=== PATIENT | male | born 1960 | race Two or more races ===

== ENCOUNTER 2016-08-17 13:18 | Inpatient (IN) | payer MEDICAID ==
[~2016-08-17] VITALS: Ht 152.4 cm; Wt 81.2 kg
[2016-08-17 14:39] LABS: Basophils # (auto) 0 uL; Basophils % (auto) 0.3 % (0.0-2.0); Eosinophils # (auto) 0.1 uL; Hematocrit 43.2 % (41.0-53.0); Hemoglobin 14.7 g/dL (13.5-17.5); Lymphocytes # (auto) 1.9 uL; Lymphocytes % (auto) 24.4 % (10.0-50.0); Mean Corpuscular Hemoglobin 30.8 pg (28.0-32.0); Mean Corpuscular Hgb Conc. 33.9 g/dL (32.0-36.0); Mean Corpuscular Volume 90.7 fL (80.0-100.0); Mean Platelet Volume 9.3 fL (7.4-10.4); Monocytes # (auto) 0.6 uL; Monocytes % (auto) 7.6 % (0.0-12.0); Neutrophils # (auto) 5.3 uL; Neutrophils % (auto) 66.7 % (37.0-80.0); Platelet Count (auto) 316 10^3/uL (140-450); Red Cell Distribution Width 15.1 % (11.6-16.0)
[2016-08-17 15:06] LABS: Albumin 3.1 g/dL (3.4-5.0); Alkaline Phosphatase 91 U/L (45-117); Amylase 72 U/L (25-115); Anion Gap 7 (5-15); Aspartate Aminotransferase 18 U/L (15-37); BUN/Creatinine Ratio 32.5; Bilirubin, Total 0.3 mg/dL (0.2-1.0); Blood Urea Nitrogen 25 mg/dL (7-18); Calcium 9.1 mg/dL (8.5-10.1); Carbon Dioxide 29 mmol/L (21-32); Chloride 101 mmol/L (98-107); GFR African American 134 mL/min; GFR Non-African American 111 mL/min; Glucose 91 mg/dL (74-106); Magnesium 2.4 mg/dL (1.6-2.6); Sodium 137 mmol/L (136-145); Total Protein 9.4 g/dL (6.4-8.2)
[2016-08-17 18:36] LABS: Urine Bilirubin Negative (Negative); Urine Color Yellow (Yellow); Urine Glucose Normal (Normal); Urine Ketone Negative (Negative); Urine Mucus FEW (None Seen); Urine Nitrite Negative (Negative); Urine RBC <1 /hpf (0 - 3); Urine Urobilinogen Normal (Negative); Urine pH 5.5 (5.0-8.0)
[2016-08-17 18:37] LABS: Urine Blood 1+ /uL (Negative)
[2016-08-17] MEDS ORDERED: ONDANSETRON HCL 4 MG/2 ML VIAL IV PRN (21:30)
[2016-08-17] MEDS ORDERED: MORPHINE SULF INJ 2 MG/ML SYRINGE 1ML IV PRN (21:30)
[2016-08-17] MEDS ORDERED: amLODIPine BESYLATE 5 MG TAB PO ONE (21:30)
[2016-08-17] MEDS ORDERED: ACETAMINOPHEN 325 MG TAB PO PRN (21:30)
[2016-08-17] MEDS ORDERED: TEMAZEPAM 15 MG CAP PO PRN (21:30)
[2016-08-17] MEDS: HYDROcodone-ACET 7.5/325MG TAB PO PRN (21:40)
[2016-08-17] MEDS: FAMOTIDINE 20 MG TAB PO SCH (21:44)
[2016-08-17 22:10] VITALS: BP 134/80
[2016-08-17 22:32] VITALS: BP 134/80
[2016-08-18] VITALS (7 sets, daily range): BP systolic 118–152; BP diastolic 70–98
[2016-08-18 06:07] LABS: Basophils # (auto) 0 uL; Basophils % (auto) 0.4 % (0.0-2.0); Eosinophils # (auto) 0.1 uL; Eosinophils % (auto) 1.5 % (0.0-7.0); Hematocrit 38.6 % (41.0-53.0); Hemoglobin 13.2 g/dL (13.5-17.5); Lymphocytes # (auto) 1.8 uL; Lymphocytes % (auto) 26.5 % (10.0-50.0); Mean Corpuscular Hemoglobin 30.8 pg (28.0-32.0); Mean Corpuscular Hgb Conc. 34.1 g/dL (32.0-36.0); Mean Corpuscular Volume 90.4 fL (80.0-100.0); Mean Platelet Volume 9.1 fL (7.4-10.4); Monocytes # (auto) 0.6 uL; Monocytes % (auto) 9.2 % (0.0-12.0); Neutrophils # (auto) 4.2 uL; Neutrophils % (auto) 62.4 % (37.0-80.0); Platelet Count (auto) 313 10^3/uL (140-450); Red Cell Distribution Width 15.1 % (11.6-16.0); White Blood Cell 6.8 10^3/uL (4.4-10.8)
[2016-08-18 06:23] LABS: Albumin 2.6 g/dL (3.4-5.0); BUN/Creatinine Ratio 30.6; Calcium 8.5 mg/dL (8.5-10.1); Potassium 3.9 mmol/L (3.5-5.1)
[2016-08-18 06:30] LABS: Bilirubin, Total 0.4 mg/dL (0.2-1.0); Total Protein 8.5 g/dL (6.4-8.2)
[2016-08-18] MEDS ORDERED: amLODIPine BESYLATE 5 MG TAB PO SCH (10:00)
[2016-08-18] MEDS: FAMOTIDINE 20 MG TAB PO SCH ×2 (10:09→21:05)
[2016-08-18] MEDS: ENOXAPARIN SOD 40 MG/0.4 ML SYRINGE SC SCH (10:09)
[2016-08-18 12:45] LABS: INR 1.09 (0.9-1.15); Partial Thromboplastin Time 37.2 sec (22.64-33.71); Prothrombin Time 11.9 sec (9.37-12.3)
[2016-08-19] VITALS (7 sets, daily range): BP systolic 130–144; BP diastolic 71–101
[2016-08-19] MEDS ORDERED: FLUMAZENIL 0.1 MG/ML INJ 10ML MDV IV ONE (09:09)
[2016-08-19] MEDS ORDERED: fentaNYL Drip 2500mCg/250mlNS 250 ML IV ONE (09:10)
[2016-08-19] MEDS ORDERED: MIDAZOLAM HCL 1MG/1ML-2 ML VIAL ONE (09:10)
[2016-08-19] MEDS ORDERED: NALOXONE HCL 1MG/ML 2ML SYRINGE ONE (09:10)
[2016-08-19] MEDS ORDERED: fentaNYL CITRATE 100 MCG/2 ML VL ONE (09:11)
[2016-08-19] MEDS ORDERED: LIDOCAINE 2%HCL (LOCAL ANESTH.) INJ 20ML MDV ONE (09:23)
[2016-08-19] MEDS: FAMOTIDINE 20 MG TAB PO SCH ×2 (11:01→21:30)
[2016-08-19] MEDS: ENOXAPARIN SOD 40 MG/0.4 ML SYRINGE SC SCH (11:01)
[2016-08-19] MEDS: HYDROcodone-ACET 7.5/325MG TAB PO PRN (19:54)
[2016-08-19 22:09] LABS: Lambda Lite Chains Free Serum 380.8 mg/L (5.7-26.3)
[2016-08-20 05:00] VITALS: BP 118/84
[2016-08-20 09:00] VITALS: BP 133/87
[2016-08-20] MEDS ORDERED: amLODIPine BESYLATE 5 MG TAB PO SCH (10:00)
[2016-08-20] MEDS: ENOXAPARIN SOD 40 MG/0.4 ML SYRINGE SC SCH (10:00)
[2016-08-20] MEDS: HYDROcodone-ACET 7.5/325MG TAB PO PRN (10:08)
[2016-08-20] MEDS: FAMOTIDINE 20 MG TAB PO SCH (10:12)
[2016-08-20 12:45] VITALS: BP 144/98
[2016-08-20 13:29] VITALS: BP 144/98
== END 2016-08-20 14:00 | disposition home or self-care (01) | DRG 343 ==
LOC: ER 13:51 → OVERFLOW 13:52 → CENTRAL 22:10
PROVIDERS: ADMIT Internal Medicine; ATTEND Internal Medicine
PROC: 0PB43ZX Excision of Thoracic Vertebra, Percutaneous Approach, Diagnostic (ICD-10-PCS; principal; 2016-08-19)
DX: M84.48XA Pathological fracture, other site, initial encounter for fracture (principal); C90.00 Multiple myeloma not having achieved remission; I10 Essential (primary) hypertension; Q43.3 Congenital malformations of intestinal fixation; M89.50 Osteolysis, unspecified site; E66.9 Obesity, unspecified; Z68.34 Body mass index [BMI] 34.0-34.9, adult; Z82.49 Family history of ischemic heart disease and other diseases of the circulatory system
CPT/HCPCS: 10022; 36415; 71010; 72128; 74176; 77012; 77074; 78306; 80053; 81001; 82150; 82232; 82784; 83615; 83690; 83735; 83883; 84156; 84484; 85025; 85610; 85652; 85730; 86334; 86335; J2250; J3010

== ENCOUNTER 2018-06-06 19:09 | Inpatient (IN) | payer MEDICAID | END 2018-06-09 22:15 | disposition home or self-care (01) | LOC: OVERFLOW 06-07 02:39 → ER 19:09 → WEST WING 06-07 16:30 | DX: J18.1 Lobar pneumonia, unspecified organism (principal); C90.00 Multiple myeloma not having achieved remission; R65.10 Systemic inflammatory response syndrome (SIRS) of non-infectious origin without acute organ dysfunction ==

== ENCOUNTER 2021-04-08 20:32 | Emergency (ER) | payer MEDICAID ==
[~2021-04-08] VITALS: Ht 152.4 cm; Wt 82.6 kg
[~2021-04-08 20:32] MED LIST: ALB5IS NEB; LEVO500T31 PO
[2021-04-08 22:47] VITALS: BP 184/119
[2021-04-08] MEDS ORDERED: KETOROLAC TROMETH 30 MG/ML 1ML VIAL IM ONE (23:00)
[2021-04-08] MEDS ORDERED: IBUP800T27 PO (23:41)
== END 2021-04-09 00:32 | disposition home or self-care (01) ==
LOC: ER 20:33
DX: S46.911A Strain of unspecified muscle, fascia and tendon at shoulder and upper arm level, right arm, initial encounter (principal); I10 Essential (primary) hypertension; M79.18 Myalgia, other site; X58.XXXA Exposure to other specified factors, initial encounter; Y93.01 Activity, walking, marching and hiking; Y92.89 Other specified places as the place of occurrence of the external cause; Y99.8 Other external cause status
CPT/HCPCS: 93005; 96372; 99283; J1885

== ENCOUNTER 2021-06-29 21:19 | Emergency (ER) | payer MEDICAID ==
[~2021-06-29] VITALS: Ht 160 cm; Wt 80.3 kg
[2021-06-29 21:19] VITALS: BP 199/110
[~2021-06-29 21:19] MED LIST changes: +IBUP800T27 PO
[2021-06-29] MEDS ORDERED: traMADol HCL 50 MG TAB PO ONE (22:15)
[2021-06-29] MEDS ORDERED: TRAM-297 PO (22:17)
== END 2021-06-29 23:59 | disposition home or self-care (01) ==
LOC: ER 21:19
DX: M25.511 Pain in right shoulder (principal); I10 Essential (primary) hypertension; Z79.1 Long term (current) use of non-steroidal anti-inflammatories (NSAID); Z79.2 Long term (current) use of antibiotics; Z79.899 Other long term (current) drug therapy

== ENCOUNTER 2021-11-13 11:14 | Emergency (ER) | payer MEDICAID ==
[~2021-11-13] VITALS: Ht 160 cm; Wt 82.0 kg
[~2021-11-13 11:14] MED LIST changes: +TRAM-297 PO
[2021-11-13 17:23] VITALS: BP 148/85
== END 2021-11-13 17:25 | disposition home or self-care (01) ==
LOC: ER 11:14
DX: R13.10 Dysphagia, unspecified (principal); I10 Essential (primary) hypertension
CPT/HCPCS: 70490

== ENCOUNTER 2023-02-17 19:27 | Inpatient (IN) | payer MEDICAID ==
[~2023-02-17] VITALS: Ht 152.4 cm; Wt 77.7 kg
[~2023-02-17 19:27] MED LIST changes: +IBUP-1456 PO; -IBUP800T27 PO
[2023-02-17 21:25] LABS: Basophils # (auto) 0 10 ^3/uL (0-0.2); Basophils % (auto) 0.1 % (0.0-2.0); Eosinophils # (auto) 0 10 ^3/uL (0-0.8); Eosinophils % (auto) 0.4 % (0.0-7.0); Hemoglobin 16.4 g/dL (13.5-17.5); Lymphocytes % (auto) 9.5 % (10.0-50.0); Mean Corpuscular Hemoglobin 31.2 pg (28.0-32.0); Mean Corpuscular Hgb Conc. 32.9 g/dL (32.0-36.0); Monocytes # (auto) 1.1 10 ^3/uL (0-1.3); Monocytes % (auto) 10.1 % (0.0-12.0); Neutrophils # (auto) 8.3 10 ^3/uL (1.6-8.6); Neutrophils % (auto) 79.9 % (37.0-80.0); Nucleated Red Blood Cells % 0.1 %; Red Blood Cells 5.27 10^6/uL (4.5-5.90); Red Cell Distribution Width 16.7 % (11.8-14.3); White Blood Cell 10.4 10^3/uL (4.4-10.8)
[2023-02-17 21:34] LABS: Urine Bacteria MOD /hpf (None Seen); Urine Blood TRACE /uL (Negative); Urine Clarity HAZY (Clear); Urine Color Yellow (Yellow); Urine Hyaline Cast FEW /lpf (0 - 2); Urine Mucus FEW (None Seen); Urine Protein, UAD 1+ (Negative); Urine Specific Gravity 1.016 (1.001-1.035); Urine Sperm PRESENT /hpf (None Seen); Urine Urobilinogen Normal (Negative); Urine WBC 1 /hpf (0 - 3); Urine pH 5.5 (5.0-8.0)
[2023-02-17 21:40] LABS: Alanine Aminotransferase 45 U/L (7-40); Albumin 4.4 g/dL (3.2-4.8); Alkaline Phosphatase 80 U/L (46-116); Anion Gap 8 (5-15); Aspartate Aminotransferase 16 U/L (13-40); BUN/Creatinine Ratio 26.4 (10.0-20.0); Blood Urea Nitrogen 57 mg/dL (9-23); Calcium 8.5 mg/dL (8.7-10.4); Carbon Dioxide 21 mmol/L (20-30); Chloride 107 mmol/L (98-107); Glucose 149 mg/dL (74-106); Lipase 48 U/L (12-53); Potassium 4.8 mmol/L (3.5-5.1); Sodium 136 mmol/L (136-145)
[2023-02-17 21:41] LABS: Total Protein 6.7 g/dL (5.7-8.2)
[2023-02-17] MEDS ORDERED: HYDROmorphone HCL 2 MG/ML VL/or syr IV ONE (23:15)
[2023-02-17] MEDS ORDERED: SODIUM CHLORIDE 0.9% 1,000 ML IVB ONE (23:15)
[2023-02-17] MEDS ORDERED: ONDANSETRON HCL 4 MG/2 ML VIAL IV ONE (23:15)
[2023-02-18 00:53] LABS: INR 1.05 (0.9-1.15); Partial Thromboplastin Time 27.7 SEC (24.5-34.5)
[2023-02-18] MEDS ORDERED: ACETAMINOPHEN 325 MG TAB PO ONE (02:45)
[2023-02-18] MEDS ORDERED: metroNIDAZOLE 500MG/100ML 100 ML IV ONE (03:15)
[2023-02-18] MEDS ORDERED: LOPERAMIDE HCL 2 MG CAP/TAB PO ONE (03:15)
[2023-02-18] MEDS ORDERED: HYDROcodone-ACET 5/325MG TAB PO PRN (04:45)
[2023-02-18] MEDS ORDERED: ACETAMINOPHEN 325 MG TAB PO PRN (04:45)
[2023-02-18] MEDS ORDERED: SODIUM CHLORIDE 0.9% 1,000 ML IV SCH (04:45)
[2023-02-18] MEDS ORDERED: DOCUSATE SOD 100 MG CAP PO PRN (04:45)
[2023-02-18] MEDS ORDERED: MORPHINE SULFATE INJ 2 MG/ml SYRG IV PRN (04:45)
[2023-02-18] MEDS ORDERED: NITROGLYCERIN 0.4 MG SL TAB SL PRN (04:45)
[2023-02-18] MEDS ORDERED: ONDANSETRON HCL 4 MG/2 ML VIAL IV PRN (04:45)
[2023-02-18] MEDS: cefTRIAXone 1GM/50ML D5W 50 ML IV SCH (06:13)
[2023-02-18 06:34] LABS: Basophils # (auto) 0 10 ^3/uL (0-0.2); Basophils % (auto) 0.1 % (0.0-2.0); Eosinophils # (auto) 0 10 ^3/uL (0-0.8); Eosinophils % (auto) 0.1 % (0.0-7.0); Hematocrit 47.5 % (41.0-53.0); Hemoglobin 15.7 g/dL (13.5-17.5); Lymphocytes # (auto) 0.8 10 ^3/uL (0.4-5.4); Mean Corpuscular Hemoglobin 31.4 pg (28.0-32.0); Mean Corpuscular Volume 95.2 fL (80.0-100.0); Monocytes # (auto) 1.1 10 ^3/uL (0-1.3); Monocytes % (auto) 10.2 % (0.0-12.0); Neutrophils # (auto) 8.7 10 ^3/uL (1.6-8.6); Neutrophils % (auto) 81.6 % (37.0-80.0); Red Blood Cells 4.99 10^6/uL (4.5-5.90); Red Cell Distribution Width 16.4 % (11.8-14.3); White Blood Cell 10.6 10^3/uL (4.4-10.8)
[2023-02-18 06:47] LABS: Alanine Aminotransferase 44 U/L (7-40); Alkaline Phosphatase 74 U/L (46-116); Anion Gap 13 (5-15); Aspartate Aminotransferase 23 U/L (13-40); Bilirubin, Total 0.9 mg/dL (0.2-1.0); Calcium 8.2 mg/dL (8.5-10.1); Carbon Dioxide 18 mmol/L (20-30); Chloride 108 mmol/L (98-107); Glucose 121 mg/dL (74-106); Potassium 5.3 mmol/L (3.5-5.1); Sodium 139 mmol/L (136-145); Total Protein 5.8 g/dL (5.7-8.2)
[2023-02-18 06:53] LABS: Blood Urea Nitrogen 84 mg/dL (9-23)
[2023-02-18] MEDS: SODIUM CHLORIDE 0.9% 1,000 ML IV SCH ×2 (10:42→20:15)
[2023-02-18 11:05] LABS: Protein, Urine 77.4 mg/dL (0.0-11.9)
[2023-02-18 11:06] LABS: Creatinine, Urine 132.51 mg/dL (30.0-125.0); Urine Protein/Creatinine Ratio 0.58
[2023-02-18 11:11] LABS: Erythrocyte Sedimentation Rate 9 mm/hr (0-20)
[2023-02-18] MEDS ORDERED: HYDROCORTISONE SOD SUCC 100 MG/2ML INJ VIAL IV SCH (14:00)
[2023-02-18 17:55] VITALS: BP 109/82; PULSE 112; RESP 20; TEMP 98.7; O2SAT 95
[2023-02-18] MEDS ORDERED: TAMSULOSIN HYDROCHLORIDE 0.4 MG CAP PO SCH (18:00)
[2023-02-18 20:00] VITALS: PULSE 82; TEMP 37.1
[2023-02-18 22:00] VITALS: BP 109/70; PULSE 115; RESP 18; TEMP 97.9; O2SAT 93
[2023-02-19 05:00] VITALS: BP 103/71; PULSE 104; RESP 18; TEMP 98; O2SAT 93
[2023-02-19] MEDS: SODIUM CHLORIDE 0.9% 1,000 ML IV SCH ×2 (06:15→16:18)
[2023-02-19 06:17] LABS: Albumin 3.9 g/dL (3.2-4.8); Alkaline Phosphatase 68 U/L (46-116); Anion Gap 9 (5-15); Aspartate Aminotransferase 17 U/L (13-40); Bilirubin, Total 1.2 mg/dL (0.2-1.0); Calcium 7.9 mg/dL (8.7-10.4); Carbon Dioxide 22 mmol/L (20-30); Chloride 109 mmol/L (98-107); Glucose 116 mg/dL (74-106); Potassium 3.9 mmol/L (3.5-5.1); Sodium 140 mmol/L (136-145); Total Protein 5.8 g/dL (5.7-8.2)
[2023-02-19 06:19] LABS: Alanine Aminotransferase 37 U/L (7-40)
[2023-02-19 06:20] LABS: Basophils # (auto) 0 10 ^3/uL (0-0.2); Basophils % (auto) 0.3 % (0.0-2.0); Blood Urea Nitrogen 30 mg/dL (9-23); Eosinophils # (auto) 0.1 10 ^3/uL (0-0.8); Eosinophils % (auto) 1.2 % (0.0-7.0); Hematocrit 44.3 % (41.0-53.0); Hemoglobin 14.8 g/dL (13.5-17.5); Lymphocytes # (auto) 0.8 10 ^3/uL (0.4-5.4); Lymphocytes % (auto) 8.8 % (10.0-50.0); Mean Corpuscular Hemoglobin 31.4 pg (28.0-32.0); Mean Corpuscular Hgb Conc. 33.4 g/dL (32.0-36.0); Monocytes # (auto) 1.1 10 ^3/uL (0-1.3); Monocytes % (auto) 12.7 % (0.0-12.0); Neutrophils # (auto) 6.9 10 ^3/uL (1.6-8.6); Red Blood Cells 4.71 10^6/uL (4.5-5.90)
[2023-02-19 08:00] VITALS: PULSE 107; PULSE 120; RESP 14; O2SAT 94
[2023-02-19] MEDS: cefTRIAXone 1GM/50ML D5W 50 ML IV SCH (08:48)
[2023-02-19 09:00] VITALS: BP 112/78; PULSE 120; RESP 14; TEMP 98.8; O2SAT 94
[2023-02-19 13:00] VITALS: BP 108/73; PULSE 77; RESP 14; TEMP 97.4; O2SAT 94
[2023-02-19] MEDS ORDERED: METR-344 PO (15:17)
[2023-02-19] MEDS ORDERED: CIPR250T3 PO (15:17)
[2023-02-19 16:20] VITALS: BP 108/73; PULSE 105; RESP 14; TEMP 97.4; O2SAT 95
[2023-02-20 07:06] LABS: PSA Free 0.45 ng/mL; Prostate Specific Antigen 1.8 ng/mL (0.0-4.0)
== END 2023-02-19 17:05 | disposition home or self-care (01) | DRG 469 ==
LOC: ER 19:27 → TELE 02-18 04:32 → TELE-WESTW 02-18 18:00
PROVIDERS: ADMIT Nurse Practitioner Family; ATTEND Nurse Practitioner Family
DX: N17.9 Acute kidney failure, unspecified (principal); M48.54XA Collapsed vertebra, not elsewhere classified, thoracic region, initial encounter for fracture; K52.9 Noninfective gastroenteritis and colitis, unspecified; E86.0 Dehydration; E87.5 Hyperkalemia; I12.9 Hypertensive chronic kidney disease with stage 1 through stage 4 chronic kidney disease, or unspecified chronic kidney disease; N18.9 Chronic kidney disease, unspecified; N40.1 Benign prostatic hyperplasia with lower urinary tract symptoms; R73.9 Hyperglycemia, unspecified; Z85.79 Personal history of other malignant neoplasms of lymphoid, hematopoietic and related tissues
CPT/HCPCS: 36415; 71045; 74176; 76775; 80053; 81001; 82570; 83605; 83690; 84154; 84156; 84300; 84484; 85025; 85610; 85652; 85730; 87086; 96361; 96374; G0378; J0696; J2405; J3490